=== PATIENT | female | born 1995 | race Caucasian/White ===

== ENCOUNTER 2016-05-29 21:02 | Emergency (ER) | payer BC ==
[2016-05-29] MEDS ORDERED: ONDANSETRON 4 MG TAB.RAPDIS PO ONE (23:17)
--- NOTE | 2016-05-29 23:17 | ER Document Report ---
ED Medical Screen (RME) - General Stated Complaint: BACK PAIN,NAUSEA Time seen by provider: 23:15 Mode of Arrival: Ambulatory Information source: Patient Notes: 20-year-old female presents to ED for left flank pain started this morning and with nausea or couple days. Last menstrual period 05/20/2016. Denies any history of kidney stones denies any burning frequency or urgency of urine. Denies any fevers I have greeted and performed a rapid initial assessment of this patient. A comprehensive ED assessment and evaluation of the patient, analysis of test results and completion of medical decision making process will be conducted by an additional ED providers. Physical Exam - Vital signs Vitals: Temp Pulse Resp BP Pulse Ox 98.2 F 88 16 128/72 H 99 05/29/16 22:11 05/29/16 22:11 05/29/16 22:11 05/29/16 22:11 05/29/16 22:11 Course - Vital Signs Vital signs: Temp Pulse Resp BP Pulse Ox 98.2 F 88 16 128/72 H 99 05/29/16 22:11 05/29/16 22:11 05/29/16 22:11 05/29/16 22:11 05/29/16 22:11
--- NOTE | 2016-05-30 02:51 | ER Document Report ---
ED General - General Chief Complaint: Flank Pain Stated Complaint: BACK PAIN,NAUSEA Mode of Arrival: Ambulatory Notes: Patient is 20-year-old female presents with complaint of some lower crampy abdominal pain a little back pain. Some nausea but no vomiting. No diarrhea. Her last muscle. Wasn't felt very tense. She says that it was not her normal period and that it was very light. She did tapering suggest home. She had one thinks he test and a faint positive. She took 2 others which were negative. She has had one child in the past. She's currently and says that they are not actively trying have a child, but do not preventing it either. They are not currently using contraceptives. TRAVEL OUTSIDE OF THE [place] IN LAST 30 DAYS: No - Related Data Allergies/Adverse Reactions: No Known Allergies Allergy (Unverified 05/29/16 23:15) Past Medical History - General Information source: Patient - Social History Smoking Status: Never Smoker Chew tobacco use (# tins/day): No Frequency of alcohol use: None Drug Abuse: None Family History: Reviewed & Not Pertinent Patient has suicidal ideation: No Patient has homicidal ideation: No Renal/ Medical History: Denies: Hx Peritoneal Dialysis Review of Systems - Review of Systems Notes: My Normal Review Basic REVIEW OF SYSTEMS: CONSTITUTIONAL : Denies fever, chills, or sweats. Denies recent illness. RESPIRATORY: Denies cough, cold, or chest congestion. Denies shortness of breath, difficulty breathing, or wheezing. GASTROINTESTINAL: Mild suprapubic abdominal pain. Denies nausea, vomiting, or diarrhea. Denies constipation. Last BM: GENITOURINARY: No dysuria FEMALE GENITOURINARY: Bladder the normal menstrual period one week ago. MUSCULOSKELETAL: Mild low back pain SKIN: Denies rash or skin lesions. NEUROLOGICAL: Denies altered mental status or loss of consciousness. Denies headache. Denies weakness or paralysis or loss of use of either side. Denies problems with gait or speech. Denies sensory or motor loss. ALL OTHER SYSTEMS REVIEWED AND NEGATIVE. Physical Exam - Vital signs Vitals: Temp Pulse Resp BP Pulse Ox 98.2 F 88 16 128/72 H 99 05/29/16 22:11 05/29/16 22:11 05/29/16 22:11 05/29/16 22:11 05/29/16 22:11 - Notes Notes: General Appearance: Well nourished, alert, cooperative, no acute distress, no obvious discomfort. Well-appearing. Vitals: reviewed, See vital signs table. Eyes: PERRL, EOMI, Conjuctiva clear Lungs: No wheezing, No rales, No rhonci, No accessory muscle use, good air exchange bilaterally. Heart: Normal rate, Regular rythm, No murmur, no rub Abdomen: Normal BS, soft, No rigidity, No reproducible abdominal tenderness to palpation, No guarding, no rebound, no abdominal masses, no organomegaly Extremities: strength 5/5 in all extremities, good pulses in all extremities, no swelling or tenderness in the extremities, no edema. Skin: warm, dry, appropriate color, no rash Neuro: speech clear, oriented x 3, normal affect, responds appropriately to questions. Course - Vital Signs Vital signs: Temp Pulse Resp BP Pulse Ox 98.2 F 88 16 128/72 H 99 05/29/16 22:11 05/29/16 22:11 05/29/16 22:11 05/29/16 22:11 05/29/16 22:11 - Laboratory Laboratory results interpreted by me: 05/30/16 03:22 Urine Protein 30 H Urine Ketones TRACE H Urine Blood MODERATE H Urine Nitrite POSITIVE H Ur Leukocyte Esterase LARGE H - Transfer of Care Notes: 05/30/16 04:24 Patient looks very well and exam. Urinalysis negative. test is negative. She has no reproducible pain to palpation. She's not currently vomiting and she says her nausea feels improved. We'll discharge her home with a prescription for Zofran to use as needed. I encouraged return to ER immediately if she has recurrent pains, fevers, intractable vomiting, or she feels unwell. . Patient agrees with plan will be discharged home. Dictation of this chart was performed using voice recognition software; therefore, there may be some unintended grammatical errors. Discharge - Discharge Clinical Impression: Nausea Abdominal pain Qualifiers: Abdominal location: unspecified location Qualified Code(s): R10.9 - Unspecified abdominal pain Back pain Qualifiers: Back pain location: low back pain Chronicity: unspecified Back pain laterality : left Sciatica presence: without sciatica Qualified Code(s): M54.5 - Low back pain Condition: Good Disposition: HOME, SELF-CARE Additional Instructions: Please return to ER immediately if you have worsening pain, fevers, vomiting, or feel unwell. Please drink lots of liquids. Please follow up closely with your doctor for reevaluation in 2-3 days. Prescriptions: Ondansetron [Zofran Odt 4 mg Tablet] 1 tab PO Q4H PRN #15 tab.rapdis PRN Reason: For Nausea/Vomiting Forms: Return to Work
[2016-05-30 03:47] LABS: APPEARANCE,URINE CLOUDY; BILIRUBIN,URINE NEGATIVE (NEGATIVE); GLUCOSE, URINE NEGATIVE (NEGATIVE); KETONES,URINE TRACE mg/dL (NEGATIVE); LEUKOCYTE ESTERASE,URINE LARGE (NEGATIVE); NITRITE,URINE POSITIVE (NEGATIVE); PROTEIN,URINE 30 mg/dL (NEGATIVE); URINE SPECIFIC GRAVITY 1.018; UROBILINOGEN,URINE NEGATIVE mg/dL (<2.0)
[2016-05-30 06:10] VITALS: BP 121/71
== END 2016-05-30 05:53 | disposition home or self-care (01) ==
LOC: ER 21:02
DX: R10.30 Lower abdominal pain, unspecified (principal); M54.5 Low back pain; R11.0 Nausea
CPT/HCPCS: 99284; 36415; 84703; 81001; S0119